=== PATIENT | male | born 1940 | race Caucasian/White ===

== ENCOUNTER 2019-09-24 20:55 | Emergency (ER) | payer MEDICARE, OTHER, SELFPAY ==
[2019-09-24 21:25] VITALS: BP 154/76; PULSE 80; RESP 14; TEMP 36.7; O2SAT 97; BMI 27.9
[2019-09-24 22:16] VITALS: BP 154/59; PULSE 74; RESP 18; O2SAT 100
--- NOTE | 2019-09-24 22:19 | PC.NURSE ---
Patient reports that he had chest tightness and was breathing real faster earlier. reports the patient has a history of diabetes and CHF. Patient denies any symptoms at this time. Patients states that he has also had some feet/leg swelling.
--- NOTE | 2019-09-24 22:32 | ED_ITS ---
Entered by Varsha Moss, acting as scribe for Lashay Worthington MD Sep 24, 2019 20:55 HPI - General Adult General: Chief complaint: General Medical Stated complaint: FEET AND LEGS SWELLING Time Seen by Provider: 09/24/19 22:20 Source: patient and family Mode of arrival: ambulatory Limitations: no limitations History of Present Illness: HPI narrative: 79 y/o male presents to the ED with complaint of bilateral LE swelling. complaint: LE edema Onset (ago): hour(s) Location: lower extremity Severity: moderate Associated symptoms: Deny chest pain, dyspnea, headache(s), nausea, rash or vomiting Review of Systems Const: Denies: fever or chills Eyes: Denies: change in vision ENMT: Denies: throat pain or mouth pain Card: Reports: swelling of feet/ankles; Denies: chest pain Resp: Denies: shortness of breath GI: Denies: abdominal pain, nausea, vomiting or diarrhea Musc: Denies: back pain or joint pain Skin/Breast: Denies: rash Neuro: Denies: headache or behavioral changes Psych: Denies: depression Endo: Denies: excessive urination Lam[place]/Lymph: Denies: easy bruising All/Imm: Denies: hives PFSH ED PFSH: Statuses (acute, chronic, etc) shown below reflect problem list status as previously entered and may not be historically accurate Social History Smoking and tobacco status: former smoker Physical Exam Const: COMMON NORMALS: no apparent distress, oriented x3 and healthy appearing HENMT: COMMON NORMALS: normocephalic and external nose normal HEAD & SCALP: normocephalic NOSE: external nose normal Eye: COMMON NORMALS: PERRL PUPIL: Yes PERRL Neck/C-Spine: COMMON NORMALS: full ROM and no lymphadenopathy Chest: COMMONS NORMALS: inspection of chest normal Resp: COMMON NORMALS: normal respiratory effort, no use of accessory muscles and clear to auscultation bilaterally AUSCULTATION: clear to auscultation bilaterally Cardio: COMMON NORMALS: regular rate and regular rhythm RATE: regular rate RHYTHM: regular rhythm GI: COMMON NORMALS: normal to inspection, nondistended, normoactive bowel sounds, soft to palpation, non-tender and no masses PALPATION: Yes soft Back/Pelvis: THORACIC SPINE/UPPER BACK: Yes normal to inspection Extremity: COMMON NORMALS: full ROM and normal capillary refill RIGHT LOWER EXTREMITY: Yes lower leg LEFT LOWER EXTREMITY: Yes lower leg OTHER: +1 bilateral edema Neuro: COMMON NORMALS: oriented x3 Psych: COMMON NORMALS: mental status grossly normal and cooperative Skin: COMMON NORMALS: no rashes or lesions noted GENERAL SKIN EXAM: no rashes or lesions noted Course Vital Signs: Vital signs: Vital Signs Temperature 98.0 F 09/24/19 21:25 Pulse Rate 71 09/24/19 23:35 Respiratory Rate 17 09/24/19 23:35 Blood Pressure 142/72 09/24/19 23:35 Pulse Oximetry 98 09/24/19 23:35 MDM - General Adult MDM Narrative: Medical decision making narrative: Patient presents here with lower extremity edema likely from CHF. His BNP is unchanged from previous. X- ray shows slight pulmonary edema. Patient is in no respiratory distress here. I had a long discussion with him and family and offered him admission. Patient states that he feels improved and would like to go home and try to diurese at home. I did give him IV Lasix here and he is to continue Lasix at home. He has an appoint with his PCP on and is to follow-up then. I informed if he has any worsening he is to return immediately. He understands and agrees to the plan. Lab Data: Labs: Lab Results 09/24/19 09/24/19 Range/Units 22:50 22:50 WBC 6.6 (4.0-10.0) 10^3/ uL RBC 3.63 L (4.1-5.3) 10^6/u L Hgb 10.5 L (11.7-16.6) g/dL Hct 32.9 L (42.0-52.0) % MCV 90.6 (80-94) fL MCH 28.9 (28.0-34.0) pg MCHC 31.9 (30.0-36.0) g/dL RDW 15.9 H (12.1-15.1) % Plt Count 181 (130-400) 10^3/c mm MPV 10.7 H (7.4-10.4) fL Neut % (Auto) 72.7 % Lymph % (Auto) 14.9 % [place] % (Auto) 8.8 % Eos % (Auto) 2.7 % Baso % (Auto) 0.6 % Neut # (Auto) 4.8 (1.8-7.7) 10^3/u L Lymph # (Auto) 1.0 (0.8-4.8) 10^3/u L [place] # (Auto) 0.6 (0.2-0.9) 10^3/u L Eos # (Auto) 0.2 (0.0-0.8) 10^3/u L Baso # (Auto) 0.0 (0.0-0.1) 10^3/u L Nucleated RBC % (a uto) 0 % Nucleated RBCs # 0.0 /100WBC Sodium 140 (136-145) mmol/L Potassium 3.9 (3.5-5.1) mmol/L Chloride 102 (98-107) mmol/L Carbon Dioxide 24 (22-29) mmol/L Anion Gap 17.9 (5-19) BUN 64 H (8-23) mg/dL Creatinine 2.7 H (0.7-1.2) mg/dL Glucose 73 L (74-106) mg/dL Calcium 9.3 (8.8-10.2) mg/Dl Total Bilirubin 0.4 (0.15-1.2) mg/dL AST 28 (0-40) U/L ALT 44 H (0-41) U/L Alkaline Phosphata se 80 (40-130) IU/L NT-Pro-B Natriuret Pep 95901 H (0-450) pg/mL Total Protein 6.2 L (6.6-8.7) g/dL Albumin 4.3 (3.5-5.2) g/dL Globulin 1.9 (1.3-4.6) g/dL Imaging Data^: CXR: Attestation: I personally reviewed and interpreted this imaging study as follows: My impression: slight pulmonary edema EKG Data^: EKG 1: Attestation: I personally reviewed and interpreted this EKG as follows: EKG interpretation date: 09/24/19 EKG interpretation time: 23:29 Interpretation: nsr hr [address] or t wave abnormalities qrs 162 qtc 480 Discharge Plan Discharge Patient Disposition: Home, Self-Care Clinical Impression: Edema leg CHF exacerbation Qualifiers: Heart failure type: unspecified Qualified Code(s): I50.9 - Heart failure, unspecified Condition: Stable Prescriptions: No Action furosemide 40 mg tablet 40 mg PO BID RF: 0 hydralazine 10 mg tablet 10 mg PO TID RF: 0 isosorbide mononitrate 60 mg tablet extended release 24 hr 60 mg PO DAILY RF: 0 potassium chloride 20 mEq tablet,ER particles/crystals 20 meq PO DAILY RF: 0 lorazepam 2 mg tablet 2 mg PO BEDTIME RF: 0 pantoprazole 40 mg tablet,delayed release (DR/EC) 40 mg PO BID RF: 0 isosorbide dinitrate 20 mg tablet 20 mg PO BID RF: 0 ferrous sulfate 325 mg (65 mg iron) Tablet 325 mg PO DAILY RF: 0 nitroglycerin 0.4 mg tablet, sublingual 0.4 mg sublingual PRN (Reason: Chest Pain) RF: 0 Novolog Flexpen U-100 Insulin 100 unit/mL (3 mL) Insulin Pen SUBCUT RF: 0 Levemir FlexTouch U-100 Insuln 100 unit/mL (3 mL) insulin pen SUBCUT RF: 0 aspirin 81 mg Tablet,Delayed Release (Dr/Ec) 81 mg PO DAILY RF: 0 simvastatin 20 mg tablet 20 mg PO BEDTIME RF: 0 metoprolol tartrate 25 mg Tablet 25 mg PO BID RF: 0 Discharge Orders: Discharge Order (Routine); Ordered 09/24/19 Ordered By: Lashay Worthington Referrals: Fito Baez DO [Primary Care Provider] - Discharge Diet: Advance as tolerated Discharge Activity: Resume usual activity Patient Instructions: Leg Edema (ED) Coding Level of Care Code ED Cash Crop Farmer for Chg Fwd Exam Problem Focused The documentation recorded by the Ajay mejia Ashley, accurately reflects the service I personally performed and the decisions made by Ander gonzalez Korby, MD Sep 24, 2019 20:55
--- NOTE | 2019-09-24 22:43 | XR_ITS ---
WS: [id number] CHEST XRAY TECHNIQUE: Portable chest. CLINICAL INFORMATION: sob COMPARISON: FINDINGS: Heart: Cardiomegaly. Aortic calcification. Prominent left ventricle. Lungs: Improved pleural effusions. Trace pleural fluid. Persistent pulmonary vascular congestion and interstitial edema. Bones: Chronic right rib fracture with callus formation. XR/XR chest 1V portable [id number] IMPRESSION: Cardiomegaly with mild CHF and interstitial edema. Improved pleural effusions w ith trace pleural fluid.
--- NOTE | 2019-09-24 22:44 | ECG_ITS ---
Measurements Intervals [place] Rate: 77 P: 89 [place]: 254 QRS: 22 QRSD: 162 T: 133 QT: 448 QTc: 510 SINUS RHYTHM WITH FIRST DEGREE AV BLOCK WITH OCCASIONAL VENTRICULAR PREMATURE COM COMPLEXES LEFT BUNDLE BRANCH BLOCK [120+ ms QRS DURATION, 80+ ms Q/S IN V1/V2, 85+ ms R IN Compared to ECG 06/07/2019 15:03:06 No significant changes Electronically Signed On 09-25-2019 20:11:19 CAREER TRANSITION SPECIALIST by Doron Yeh M.D. [id number]
[2019-09-24 22:58] LABS: Basophils % 0.6 %; Eosinophils # 0.2 10^3/uL (0.0-0.8); Eosinophils % 2.7 %; Hematocrit 32.9 % (42.0-52.0); Hemoglobin 10.5 g/dL (11.7-16.6); Lymphocytes % 14.9 %; Mean Corpuscular HGB Conc 31.9 g/dL (30.0-36.0); Mean Corpuscular Hemoglobin 28.9 pg (28.0-34.0); Mean Corpuscular Volume 90.6 fL (80-94); Mean Platelet Volume 10.7 fL (7.4-10.4); Monocytes # 0.6 10^3/uL (0.2-0.9); Monocytes % 8.8 %; Neutrophils # 4.8 10^3/uL (1.8-7.7); Neutrophils % 72.7 %; Nucleated Red Blood Cells % 0 %; Platelet Count 181 10^3/cmm (130-400); Red Blood Count 3.63 10^6/uL (4.1-5.3); Red Cell Distribution Width 15.9 % (12.1-15.1); White Blood Count 6.6 10^3/uL (4.0-10.0)
[2019-09-24 23:22] LABS: Alanine Aminotransferase 44 U/L (0-41); Albumin Level 4.3 g/dL (3.5-5.2); Alkaline Phosphatase 80 IU/L (40-130); Anion Gap 17.9 (5-19); Aspartate Amino Transferase 28 U/L (0-40); Blood Urea Nitrogen 64 mg/dL (8-23); Calcium 9.3 mg/Dl (8.8-10.2); Carbon Dioxide 24 mmol/L (22-29); Chloride 102 mmol/L (98-107); Globulin 1.9 g/dL (1.3-4.6); Glucose 73 mg/dL (74-106); Potassium 3.9 mmol/L (3.5-5.1); Sodium 140 mmol/L (136-145); Total Bilirubin 0.4 mg/dL (0.15-1.2); Total Protein 6.2 g/dL (6.6-8.7)
[2019-09-24] MEDS: FUROsemide 10 mg/mL SDV 10mL 80 MG IVP (23:29)
[2019-09-24 23:35] VITALS: BP 142/72; PULSE 71; RESP 17; O2SAT 98
[2019-09-24 23:58] VITALS: BP 142/72; PULSE 79; RESP 16; O2SAT 97
== END 2019-09-25 00:01 | disposition home or self-care (01) ==
PROVIDERS: Emergency Provider Emergency Medicine; Family Provider Family Medicine; PCP Family Medicine
DX: R60.0 Localized edema (principal); I50.9 Heart failure, unspecified; Z79.4 Long term (current) use of insulin; Z87.891 Personal history of nicotine dependence; I70.0 Atherosclerosis of aorta
CPT/HCPCS: 36415; 71045; 80053; 83880; 85025; 93005; 96374; 99281; J1940

== ENCOUNTER → 2019-10-03 12:10 | Outpatient (BNVA) | payer MEDICARE, OTHER, SELFPAY | PROVIDERS: Family Provider Family Medicine; PCP Family Medicine; Visit Provider Family Medicine | DX: E11.9 Type 2 diabetes mellitus without complications (principal); N18.3 Chronic kidney disease, stage 3 (moderate) | CPT/HCPCS: 36415; 80053 ==

== ENCOUNTER → 2019-10-31 09:09 | Outpatient (BNVA) | payer MEDICARE, OTHER, SELFPAY | PROVIDERS: Family Provider Family Medicine; PCP Family Medicine; Visit Provider Family Medicine | DX: D64.9 Anemia, unspecified (principal); E11.9 Type 2 diabetes mellitus without complications; N18.3 Chronic kidney disease, stage 3 (moderate); F41.9 Anxiety disorder, unspecified; I25.10 Atherosclerotic heart disease of native coronary artery without angina pectoris | CPT/HCPCS: 36415; 85025 ==

== ENCOUNTER 2019-11-04 15:02 | Observation (INO) | payer MEDICARE, OTHER, SELFPAY ==
[2019-11-04 15:04] VITALS: BP 150/62; PULSE 79; RESP 16; TEMP 36.3; O2SAT 98; BMI 25.5
--- NOTE | 2019-11-04 15:17 | ED_ITS ---
Entered by Cassie Dowd, acting as scribe for Bruce Landa MD, [facility] [place] Nov 04, 2019 15:02 HPI - Chest Pain General: Chief Complaint: Chest Pain Stated Complaint: cp Time Seen by Provider: 11/04/19 15:16 Source: patient Mode of arrival: ambulatory Limitations: other (hard of hearing) History of Present Illness: HPI narrative: 79 yo Male presents to ED with comp laint of chest pain. Pt states that this started at about 12:00 today. Pt states that his pain is intermittent. Pt's states that the patient took nitro with some relief. Pt states that he has a leaky valve in his heart that causes him to fill up with fluid. Pt's states that the patient has gained 3 pounds since last night. MD complaint: chest pain Pertinent past history: prior IL (x4, stents) Onset (ago): hour(s) Timing of current episode: episodic and now resolved Prior episodes: Yes Onset: during rest Pain location: substernal Pain radiation: none Relieving factors: nitroglycerin Exacerbating factors: nothing Associated symptoms: Reports dyspnea; Deny abdominal pain, fever(s), nausea, palpitations or vomiting Treatment prior to arrival: nitroglycerin Review of Systems General: Reports: 10 or more systems reviewed and unremarkable except in HPI and below Const: Denies: fever, chills or body aches Eyes: Denies: change in vision or blurry vision ENMT: Denies: throat pain, enlarged tonsils, painful swallowing, hoarseness, mouth pain or swelling of lips/tongue Card: Reports: chest pain, edema and swelling of feet/ankles; Denies: palpitations or irregular heart rhythm Resp: Reports: shortness of breath; Denies: productive cough or non-productive cough GI: Denies: abdominal pain, nausea or vomiting : Denies: flank pain, painful urination, urinary frequency, urinary urgency or urinary hesitancy Musc: Denies: neck pain, back pain or extremity swelling Skin/Breast: Denies: rash, itching or redness Neuro: Denies: headache, numbness in extremities or weakness in extremities Endo: Denies: excessive urination, excessive thirst or tired all the time [facility] ED PFSH: Medical History (Updated 11/04/19 @ 22:10 by Bruce Landa MD, [facility] [place]) Carotid artery disease Chronic kidney disease (CKD) stage G3b/A2, moderately decreased glomerular filtration rate (GFR) between 30-44 mL/min/1.73 square meter and albuminuria creatinine ratio between 30-299 mg/g Congestive heart failure Severe mitral regurgitation Type 2 diabetes mellitus Surgical History (Updated 11/04/19 @ 18:08 by Prince Holley MD) History of coronary artery stent placement Family History (Updated 11/04/19 @ 18:08 by Prince Holley MD) Other CAD (coronary artery disease) Social History (Updated 11/04/19 @ 18:09 by Prince Holley MD) Smoking and tobacco status: former smoker Quit status (tobacco): has quit using tobacco Alcohol intake: never Household members: spouse Housing: House Physical Exam Const: COMMON NORMALS: no apparent distress, average body habitus, oriented x3, no limitations, healthy appearing, alert and well nourished HENMT: COMMON NORMALS: normocephalic, head/scalp atraumatic and moist oral mucous membranes HEAD & SCALP: normocephalic and atraumatic Eye: COMMON NORMALS: PERRL, EOMs intact bilaterally, conjunctivae normal and no scleral icterus CONJUNCTIVA: Yes conjunctivae normal PUPIL: Yes PERRL Neck/C-Spine: COMMON NORMALS: full ROM, supple, no meningeal signs, no JVD and no carotid bruits Chest: COMMONS NORMALS: inspection of chest normal and palpation of chest normal Resp: COMMON NORMALS: normal respiratory effort, no retractions, no use of accessory muscles and percussion normal; negative for clear to auscultation bilaterally AUSCULTATION: not clear to auscultation bilaterally and crackles PERCUSSION: percussion normal Cardio: COMMON NORMALS: no JVD, regular rate, regular rhythm, S1 normal heart sound, S2 normal heart sound, no gallops, no clicks, no murmurs, no rub and peripheral pulses 2+ throughout RATE: regular rate RHYTHM: regular rhythm HEART SOUNDS: S1 normal, S2 normal and murmur PERIPHERAL PULSES: pulses 2+ throughout GI: COMMON NORMALS: normal to inspection, nondistended, normoactive bowel sounds, soft to palpation, non-tender, no hepatosplenomegaly, no masses and no bruits PALPATION: Yes soft and Yes no hepatosplenomegaly : COMMON NORMALS: Yes no CVA tenderness BLADDER/KIDNEY EXAM: Yes no CVA tenderness Back/Pelvis: COMMON NORMALS: no CVA tenderness Extremity: COMMON NORMALS: normal to inspection, full ROM, normal capillary refill, no calf tenderness and no pedal edema GENERAL: Yes normal exam except as noted and Yes edema (2+) Neuro: COMMON NORMALS: oriented x3 SENSORIUM/ORIENTATION: Yes alert MENINGEAL SIGNS: Yes no meningeal signs Skin: COMMON NORMALS: no rashes or lesions noted, no wounds, skin turgor normal, no jaundice, no petechiae and no mottling GENERAL SKIN EXAM: no rashes or lesions noted and turgor normal Course Consultations: Consultation #1: Dr. Lara, hospitalist. He kindly accepted the patient to his service. Time: 18:15 Vital Signs: Vital signs: Vital Signs Temperature 97.9 F 11/04/19 21:39 Pulse Rate 110 H 11/04/19 21:39 Respiratory Rate 24 H 11/04/19 21:39 Blood Pressure 150/95 11/04/19 21:39 Pulse Oximetry 98 11/04/19 21:39 MDM - Chest Pain MDM Narrative: Medical decision making narrative: 77-year-old gentleman who presents to the emergency department with chest pain and shortness of breath. Evaluation in the emergency department is consistent with CHF exacerbation. He also has chronic kidney disease and an elevated troponin. He is admitted to the cardiac stepdown unit for further evaluation and management Medical Records: Attestation: I reviewed the patient's medical records. Lab Data: Attestation: I reviewed the patient's lab results. Lab results narrative: Elevated troponin, elevated but stable creatinine, elevated BUN, elevated proBNP. Labs: Lab Results 11/04/19 11/04/19 11/04/19 Range/Units 15:32 15:32 15:32 WBC 6.0 (4.0-10.0) 10^3/ uL RBC 3.86 L (4.1-5.3) 10^6/u L Hgb 11.1 L (11.7-16.6) g/dL Hct 35.2 L (42.0-52.0) % MCV 91.2 (80-94) fL MCH 28.8 (28.0-34.0) pg MCHC 31.5 (30.0-36.0) g/dL RDW 13.9 (12.1-15.1) % Plt Count 170 (130-400) 10^3/c mm MPV 11.3 H (7.4-10.4) fL Neut % (Auto) 61.5 % Lymph % (Auto) 22.3 % [place] % (Auto) 9.8 % Eos % (Auto) 5.5 % Baso % (Auto) 0.7 % Neut # (Auto) 3.7 (1.8-7.7) 10^3/u L Lymph # (Auto) 1.3 (0.8-4.8) 10^3/u L [place] # (Auto) 0.6 (0.2-0.9) 10^3/u L Eos # (Auto) 0.3 (0.0-0.8) 10^3/u L Baso # (Auto) 0.0 (0.0-0.1) 10^3/u L Nucleated RBC % (a uto) 0 % Nucleated RBCs # 0.0 /100WBC D-Dimer 0.61 H (0-0.59) ug/mIFE U Sodium 140 (136-145) mmol/L Potassium 4.8 (3.5-5.1) mmol/L Chloride 101 (98-107) mmol/L Carbon Dioxide 25 (22-29) mmol/L Anion Gap 18.8 (5-19) BUN 78 H (8-23) mg/dL Creatinine 3.0 H (0.7-1.2) mg/dL Glucose 91 (65-115) mg/dL Calcium 9.1 (8.5-10.5) mg/dL Total Bilirubin 0.2 (0.15-1.2) mg/dL AST 18 (0-40) U/L ALT 13 (0-41) U/L Alkaline Phosphata se 83 (40-130) IU/L Troponin T Baselin e (0-15) ng/mL Troponin T 120 Min koi (0-15) ng/mL Delta Troponin T (0-10) ABS# NT-Pro-B Natriuret Pep (0-450) pg/mL Total Protein 6.7 (6.6-8.7) g/dL Albumin 4.5 (3.5-5.2) g/dL Globulin 2.2 (1.3-4.6) g/dL TSH (0.27-4.20) uIU/ mL Urine Color (Yellow) Urine Appearance (CLEAR) Urine pH (5-7) Ur Specific Gravit y (1.005-1.030) Urine Protein (Negative) Urine Glucose (UA) (Normal) Urine Ketones (Negative) Urine Blood (Negative) Urine Nitrate (Negative) Urine Bilirubin (NEGATIVE) Urine Urobilinogen (Negative) mg/dL Ur Leukocyte Jovita ase (Negative) 11/04/19 11/04/19 11/04/19 Range/Units 15:32 17:07 17:31 WBC (4.0-10.0) 10^3/ uL RBC (4.1-5.3) 10^6/u L Hgb (11.7-16.6) g/dL Hct (42.0-52.0) % MCV (80-94) fL MCH (28.0-34.0) pg MCHC (30.0-36.0) g/dL RDW (12.1-15.1) % Plt Count (130-400) 10^3/c mm MPV (7.4-10.4) fL Neut % (Auto) % Lymph % (Auto) % [place] % (Auto) % Eos % (Auto) % Baso % (Auto) % Neut # (Auto) (1.8-7.7) 10^3/u L Lymph # (Auto) (0.8-4.8) 10^3/u L [place] # (Auto) (0.2-0.9) 10^3/u L Eos # (Auto) (0.0-0.8) 10^3/u L Baso # (Auto) (0.0-0.1) 10^3/u L Nucleated RBC % (a uto) % Nucleated RBCs # /100WBC D-Dimer (0-0.59) ug/mIFE U Sodium (136-145) mmol/L Potassium (3.5-5.1) mmol/L Chloride (98-107) mmol/L Carbon Dioxide (22-29) mmol/L Anion Gap (5-19) BUN (8-23) mg/dL Creatinine (0.7-1.2) mg/dL Glucose (65-115) mg/dL Calcium (8.5-10.5) mg/dL Total Bilirubin (0.15-1.2) mg/dL AST (0-40) U/L ALT (0-41) U/L Alkaline Phosphata se (40-130) IU/L Troponin T Baselin e 81 H (0-15) ng/mL Troponin T 120 Min koi 73.64 H (0-15) ng/mL Delta Troponin T -7.36 L (0-10) ABS# NT-Pro-B Natriuret Pep (0-450) pg/mL Total Protein (6.6-8.7) g/dL Albumin (3.5-5.2) g/dL Globulin (1.3-4.6) g/dL TSH (0.27-4.20) uIU/ mL Urine Color Straw (Yellow) Urine Appearance Clear (CLEAR) Urine pH 5 (5-7) Ur Specific Gravit y 1.005 (1.005-1.030) Urine Protein Neg (Negative) Urine Glucose (UA) Norm (Normal) Urine Ketones Negative (Negative) Urine Blood Neg (Negative) Urine Nitrate Negative (Negative) Urine Bilirubin Neg (NEGATIVE) Urine Urobilinogen Norm (Negative) mg/dL Ur Leukocyte Jovita ase Negative (Negative) 11/04/19 11/04/19 Range/Units 17:31 17:31 WBC (4.0-10.0) 10^3/ uL RBC (4.1-5.3) 10^6/u L Hgb (11.7-16.6) g/dL Hct (42.0-52.0) % MCV (80-94) fL MCH (28.0-34.0) pg MCHC (30.0-36.0) g/dL RDW (12.1-15.1) % Plt Count (130-400) 10^3/c mm MPV (7.4-10.4) fL Neut % (Auto) % Lymph % (Auto) % [place] % (Auto) % Eos % (Auto) % Baso % (Auto) % Neut # (Auto) (1.8-7.7) 10^3/u L Lymph # (Auto) (0.8-4.8) 10^3/u L [place] # (Auto) (0.2-0.9) 10^3/u L Eos # (Auto) (0.0-0.8) 10^3/u L Baso # (Auto) (0.0-0.1) 10^3/u L Nucleated RBC % (a uto) % Nucleated RBCs # /100WBC D-Dimer (0-0.59) ug/mIFE U Sodium (136-145) mmol/L Potassium (3.5-5.1) mmol/L Chloride (98-107) mmol/L Carbon Dioxide (22-29) mmol/L Anion Gap (5-19) BUN (8-23) mg/dL Creatinine (0.7-1.2) mg/dL Glucose (65-115) mg/dL Calcium (8.5-10.5) mg/dL Total Bilirubin (0.15-1.2) mg/dL AST (0-40) U/L ALT (0-41) U/L Alkaline Phosphata se (40-130) IU/L Troponin T Baselin e (0-15) ng/mL Troponin T 120 Min koi (0-15) ng/mL Delta Troponin T (0-10) ABS# NT-Pro-B Natriuret Pep 52734 H (0-450) pg/mL Total Protein (6.6-8.7) g/dL Albumin (3.5-5.2) g/dL Globulin (1.3-4.6) g/dL TSH 3.70 (0.27-4.20) uIU/ mL Urine Color (Yellow) Urine Appearance (CLEAR) Urine pH (5-7) Ur Specific Gravit y (1.005-1.030) Urine Protein (Negative) Urine Glucose (UA) (Normal) Urine Ketones (Negative) Urine Blood (Negative) Urine Nitrate (Negative) Urine Bilirubin (NEGATIVE) Urine Urobilinogen (Negative) mg/dL Ur Leukocyte Jovita ase (Negative) Imaging Data^: CXR: Radiologist's impression: [address] [place] [address] XRay Report Signed Patient: Paulino Jonesleilani #: [id number] : 1Acct#:[id number] Age/Sex: 79 / MADM Date: 11/04/19 Loc: ERRoom/Bed: Attending Dr: Ordering Provider/Ordering MD: Bruce Landa MD, [facility] [place] Date of Service: 11/04/19 Procedure(s): XR chest 1V portable [id number] Accession Number(s): [id number] Report Number: [id number] PROCEDURE INFORMATION: Exam: XR Chest, 1 View Exam date and time: 11/04/2019 4:39 PM Age: 79 years old Clinical indication: Left-sided chest pain TECHNIQUE: Imaging protocol: XR of the chest Views: 1 view. COMPARISON: CR XR chest 1V portable [id number] 09/24/2019 10:51 PM FINDINGS: Lungs: There is unchanged vascular congestion with cephalization of flow, interstitial edema and ground-glass opacities compatible with CHF. Basilar ground-glass opacities are unchanged. No new airspace consolidation or infiltrate. Pleural space: Unremarkable. No pleural effusion. No pneumothorax. Heart/Mediastinum: The heart is enlarged. Bones/joints: No acute abnormality. XR/XR chest 1V portable [id number] IMPRESSION: There is unchanged vascular congestion with cephalization of flow, interstitial edema and ground-glass opacities compatible with CHF. Dictated By:Laura Coleman Signed By:Tien Coleman Date/Time:11/04/19 1730 DD/ 1729 EKG Data^: EKG 1: Attestation: I personally reviewed and interpreted this EKG as follows: EKG interpretation date: 11/04/19 EKG interpretation time: 15:03 Prior EKG tracings: not available for review Computer generated interpretation: [address] [address] Electrocardiograph Report Signed Patient: Paulino Jones #: [id number] : 1940cct#:[id number] Age/Sex: 79 / MADM Date: 09/24/19 Loc: ERRoom/Bed: Attending Dr: Ordering Provider/Ordering MD: Lashay Worthington MD Date of Service: 09/24/19 Procedure(s): ECG 12 lead EKG Accession Number(s): [id number] Report Number: [id number] Measurements Intervals [place] Rate: 77 P: 89 [place]: 254 QRS: 22 QRSD: 162 T: 133 QT: 448 QTc: 510 SINUS RHYTHM WITH FIRST DEGREE AV BLOCK WITH OCCASIONAL VENTRICULAR PREMATURE COM COMPLEXES LEFT BUNDLE BRANCH BLOCK [120+ ms QRS DURATION, 80+ ms Q/S IN V1/V2, 85+ ms R IN Compared to ECG 06/07/2019 15:03:06 No significant changes Electronically Signed On 09-25-2019 20:11:19 ELECTRIC RAZOR MECHANIC by Doron Yeh M.D. [email or web address] EKG 2: Attestation: I personally reviewed and interpreted this EKG as follows: EKG interpretation date: 11/04/19 EKG interpretation time: 18:51 Prior EKG tracings: available for review Interpretation: Unchanged from earlier today Discharge Plan Discharge Patient Disposition: Admitted As Inpatient Admit Provider: Prince Holley Clinical Impression: Chronic kidney disease (CKD) stage G3b/A2, moderately decreased glomerular filtration rate (GFR) between 30-44 mL/min/1.73 square meter and albuminuria creatinine ratio between 30-299 mg/g, Type 2 diabetes mellitus Congestive heart failure Qualifiers: Heart failure type: unspecified Heart failure chronicity: acute on chronic Qualified Code(s): I50.9 - Heart failure, unspecified Condition: Stable Interventions: ED Discharge Assessment Last Done: 11/04/19 21:28 Discharge Date/Time: 11/04/19 21:34 Coding Level of Care Code ED Wholesaler for Chg Fwd Exam Comprehensive The documentation recorded by the Noemí mejia Carmen, accurately reflects the service I personally performed and the decisions made by Cordell gonzalez Adegoke I, MD, [facility] [place] Nov 04, 2019 15:02
--- NOTE | 2019-11-04 15:39 | PC.NURSE ---
Patient states chest pain started in the left lower chest about 12pm during rest. Patient states that between this time and 1400 he took two nitros and this helped his pain temporarily. The pain returned once on the drive over then again during his triage. Patient states pain is not present at this time. states that patient has a leaky valve and has gained 2lb since this morning.
--- NOTE | 2019-11-04 15:57 | XRR_ITS ---
PROCEDURE INFORMATION: Exam: XR Chest, 1 View Exam date and time: 11/04/2019 4:39 PM Age: 79 years old Clinical indication: Left-sided chest pain TECHNIQUE: Imaging protocol: XR of the chest Views: 1 view. COMPARISON: CR XR chest 1V portable [id number] 09/24/2019 10:51 PM FINDINGS: Lungs: There is unchanged vascular congestion with cephalization of flow, interstitial edema and ground-glass opacities compatible with CHF. Basilar ground-glass opacities are unchanged. No new airspace consolidation or infiltrate. Pleural space: Unremarkable. No pleural effusion. No pneumothorax. Heart/Mediastinum: The heart is enlarged. Bones/joints: No acute abnormality. XR/XR chest 1V portable [id number] IMPRESSION: There is unchanged vascular congestion with cephalization of flow, interstitial edema and ground-glass opacities compatible with CHF.
[2019-11-04 16:14] LABS: Basophils % 0.7 %; Eosinophils # 0.3 10^3/uL (0.0-0.8); Eosinophils % 5.5 %; Hematocrit 35.2 % (42.0-52.0); Hemoglobin 11.1 g/dL (11.7-16.6); Lymphocytes # 1.3 10^3/uL (0.8-4.8); Lymphocytes % 22.3 %; Mean Corpuscular HGB Conc 31.5 g/dL (30.0-36.0); Mean Corpuscular Hemoglobin 28.8 pg (28.0-34.0); Mean Corpuscular Volume 91.2 fL (80-94); Mean Platelet Volume 11.3 fL (7.4-10.4); Monocytes # 0.6 10^3/uL (0.2-0.9); Monocytes % 9.8 %; Neutrophils # 3.7 10^3/uL (1.8-7.7); Neutrophils % 61.5 %; Nucleated Red Blood Cells % 0 %; Platelet Count 170 10^3/cmm (130-400); Red Blood Count 3.86 10^6/uL (4.1-5.3); Red Cell Distribution Width 13.9 % (12.1-15.1)
[2019-11-04 16:28] LABS: Alanine Aminotransferase 13 U/L (0-41); Albumin Level 4.5 g/dL (3.5-5.2); Alkaline Phosphatase 83 IU/L (40-130); Anion Gap 18.8 (5-19); Aspartate Amino Transferase 18 U/L (0-40); Blood Urea Nitrogen 78 mg/dL (8-23); Calcium 9.1 mg/dL (8.5-10.5); Carbon Dioxide 25 mmol/L (22-29); Chloride 101 mmol/L (98-107); D Dimer 0.61 ug/mIFEU (0-0.59); Globulin 2.2 g/dL (1.3-4.6); Glucose 91 mg/dL (65-115); Potassium 4.8 mmol/L (3.5-5.1); Sodium 140 mmol/L (136-145); Total Bilirubin 0.2 mg/dL (0.15-1.2); Total Protein 6.7 g/dL (6.6-8.7)
[2019-11-04 16:32] LABS: Troponin(5th) Baseline 81 ng/mL (0-15)
[2019-11-04 17:30] LABS: Add Urine Microscopic? NO
[2019-11-04 17:37] LABS: Urine Appearance Clear (CLEAR); Urine Color Straw (Yellow); pH Urine 5 (5-7)
[2019-11-04 17:38] LABS: Bilirubin Urine Neg (NEGATIVE); Blood Urine Neg (Negative); Glucose Urine UA Norm (Normal); Ketones Urine Negative (Negative); Leukocyte Esterase Urine Negative (Negative); Nitrate Urine Negative (Negative); Protein Urine Neg (Negative); Specific Gravity, Urine 1.005 (1.005-1.030); Urobilinogen Urine Norm (Negative)
[2019-11-04 17:52] LABS: Troponin 5 2HR 73.64 ng/mL (0-15)
[2019-11-04 17:57] LABS: Troponin 5 2HR Delta -7.36 ABS# (0-10)
--- NOTE | 2019-11-04 17:57 | ECG_ITS ---
Measurements Intervals [place] Rate: 86 P: 91 CT: 239 QRS: 12 QRSD: 161 T: 132 QT: 421 QTc: 505 SINUS RHYTHM WITH FIRST DEGREE AV BLOCK LEFT BUNDLE BRANCH BLOCK [120+ ms QRS DURATION, 80+ ms Q/S IN V1/V2, 85+ ms R IN / I/aVL/V5/V6] Compared to ECG 09/24/2019 23:29:53 No significant changes Electronically Signed On 11-05-2019 19:47:24 TELECASTING ENGINEER by Ovidio Dotson M.D. [id number]
--- NOTE | 2019-11-04 18:05 | P.HP_ITS ---
Providers/Chief Complaint Primary Care Provider: Fito Baez DO Chief Complaint: cp History of Present Illness Paulino Jones is a 79 year old male with past medical history of type 2 diabetes mellitus, COPD, combined congestive heart failure, severe mitral regurgitation, CAD, CKD with baseline creatinine which seems to be between 2.5-3 with multiple admissions because of congestive heart failure with last admission in May 2019. He presented to hospital today with CP which was left sided non radiating, not reffering not a/w N/V, palpitations, headache. As per patient has these CP on and off once every week and gets worse when he puts up fluid on his body. He denies any more PND and orthopnea and SOB on exertion than baseline but he has been asked by Dr. Vaughn to come to ER every time he builds up more than 3 lbs. Today when he woke up his weight was 5 lbs more than baseline so presented to ER. He denies any N/V, fever, flu like symptoms, fever, cough, diarrhea, dysuria, increased salt intake or increased water intake or changes in his medication. Review of Systems Const: Denies: fever, chills, body aches, change in appetite, malaise, night sweats, diaphoresis, change in sleep pattern, daytime sleepiness or snoring Eyes: Denies: change in vision, blurry vision, photophobia, eye discomfort or eye discharge ENMT: Denies: throat pain, enlarged tonsils, hoarseness, mouth pain, oral sores/lesions, dry mouth, tinnitus, nasal congestion or post nasal drip Card: Denies: chest pain, palpitations, irregular heart rhythm, edema, swelling of feet/ankles, lightheadedness, syncope, pre-syncope, shortness of breath on exertion, shortness of breath when lying down, leg pain with exertion or bluish discoloration of hands/feet Resp: Denies: shortness of breath, productive cough, non-productive cough, wheezing, stridor, pain on inspiration, change in phlegm color, coughing up blood or chest congestion GI: Denies: abdominal pain, nausea, vomiting, vomiting blood, coffee grounds in vomit, difficulty swallowing, heartburn/indigestion, diarrhea, constipation, bloating, cramping, change in bowel habits, painful bowel movements, blood in stool or black tarry stool : Denies: flank pain, difficulty urinating, painful urination, urinary frequency, urinary urgency, urinary hesitancy, urinary dribbling, difficulty starting urination, change in urine stream, nighttime urination or blood in urine Musc: Denies: neck pain, back pain, extremity pain, joint pain, joint swelling, redness, joint stiffness or limited range of motion Neuro: Denies: headache, numbness in extremities, weakness in extremities, changes in sensation, lack of coordination, difficulty walking, frequent falls, dizziness, vertigo, confusion, slurred speech, difficulty communicating thoughts or seizure-like activity Psych: Denies: anxiety, depression, mood swings, panic attacks, hopelessness or irritability Endo: Denies: excessive urination, excessive thirst, tired all the time, cold intolerance, excessive sweating, flushing or heat intolerance Lamont/Lymph: Denies: easy bruising or easy bleeding All/Imm: Denies: tongue swelling, facial swelling or acute wheezing Medications/Allergies Home Medications Medication Instructions Recorded Confirmed Last Taken Type insulin aspart U-100 [Novolog See Rx Instructions .ROUTE .COMPLEX 11/04/19 11/04/19 11/04/19 History Flexpen U-100 Insulin] insulin detemir U-100 [Levemir 70 unit SUBCUT DAILY 11/04/19 11/04/19 11/04/19 History FlexTouch U-100 Insuln] Allergies Allergy/AdvReac Type Severity Reaction Status Date / Time nortriptyline Allergy Severe ALGY-Anaphy Verified 10/31/19 09:09 laxis sulfamethoxazole Allergy Unknown Unknown Verified 10/31/19 09:09 [From Bactrim] trimethoprim [From Bactrim] Allergy Unknown Unknown Verified 10/31/19 09:09 atorvastatin [From Lipitor] Allergy ADV-Weaknes Verified 10/31/19 09:09 s ceftriaxone [From Rocephin] Allergy Unknown Verified 10/31/19 09:09 PFSH Acute PFSH: Medical History (Updated 11/04/19 @ 18:08 by Prince Holley MD) Carotid artery disease Chronic kidney disease (CKD) stage G3b/A2, moderately decreased glomerular filtration rate (GFR) between 30-44 mL/min/1.73 square meter and albuminuria creatinine ratio between 30-299 mg/g Congestive heart failure Severe mitral regurgitation Type 2 diabetes mellitus Surgical History (Updated 11/04/19 @ 18:08 by Prince Holley MD) History of coronary artery stent placement Family History (Updated 11/04/19 @ 18:08 by Prince Holley MD) Other CAD (coronary artery disease) Social History (Updated 11/04/19 @ 18:09 by Prince Holley MD) Smoking and tobacco status: former smoker Quit status (tobacco): has quit using tobacco Alcohol intake: never Household members: spouse Housing: House Vitals/I&O/Wt Last Vital Signs Temp 97.4 F L 11/04/19 15:04 Pulse 79 11/04/19 15:04 Resp 16 11/04/19 15:04 BP 150/62 11/04/19 15:04 Pulse Ox 98 11/04/19 15:04 Weight last 48 hrs Weight 73.936 kg Physical Exam Narrative: EXAM NARRATIVE: General: No acute distress, AO x3 HEENT: PERRLA, pupils bilaterally equal and reactive Chest: Normal vesicular breath sounds, fine crackles present in both the bases, equal good air entry bilaterally CVS: S1-S2 regular, pansystolic murmur in the apex 3/6, JVD elevated, S3 gallop, no rubs Abdomen: Soft, nontender, no organomegaly, bowel sounds present Neuro: No focal deficits, no facial deformity, AO x3, power 5/5 in all limbs Extremities: 1+ pitting edema in both lower limbs Data : 11/04/19 15:32 11/04/19 15:32 A&P Assessment and plan (1) CAD (coronary artery disease): Status: Acute Code(s): I25.10 - Atherosclerotic heart disease of [place] coronary artery without angina pectoris (2) Chronic kidney disease (CKD) stage G3b/A2, moderately decreased glomerular filtration rate (GFR) between 30-44 mL/min/1.73 square meter and albuminuria creatinine ratio between 30-299 mg/g: Status: Acute Code(s): N18.3 - Chronic kidney disease, stage 3 (moderate) (3) Type 2 diabetes mellitus: Status: Acute Qualifiers: Diabetes mellitus complication status: without complication Diabetes mellitus long wall mining machine helper insulin use: without halfway use Qualified Code(s): E11.9 - Type 2 diabetes mellitus without complications Code(s): E11.9 - Type 2 diabetes mellitus without complications (4) Congestive heart failure: Status: Acute Code(s): I50.9 - Heart failure, unspecified (5) Severe mitral regurgitation: Status: Acute Code(s): I34.0 - Nonrheumatic mitral (valve) insufficiency Additional A&P Information Admit to [facility] Congestive heart failure: Chest x-ray concerning for mild congestive heart failure. No proBNP done. Will get proBNP stat. Last proBNP in September more than 27,000. Last echocardiogram 14 April 2019 shows EF of 45 to 50% with global hypokinesis with grade 2 diastolic dysfunction RVSP of 67 mmHg, moderate to severe mitral regurgitation, mild aortic stenosis, mild aortic regurgitation. Patient has been given 80 mg IV Lasix in the ER. For now we will start patient on 60 mg IV Lasix twice daily from tomorrow morning. Fluid restriction to 15,00 cc per day Daily weights. Strict intake and output charting. Oxygen supplementation keeping saturation over 92%. CP: EKG at baseline. Troponins at baseline with negative delta. Most likley from CHF GI bleed in April: no evidence of acute change, hemoglobin stable Chronic kidney disease: Creatinine appears to be a baseline, will continue to monitor closely Elevated troponin: Secondary to acute CHF exacerbation. Appears to be chronic Insulin-dependent diabetes mellitus type II: continue on home insulin COPD, oxygen use on an as-needed basis: currently on RA, RTAT, O2 per protocol Diastolic and systolic congestive heart failure: as above Severe mitral regurgitation: followed by Dr. Vaughn Coronary artery disease: Continue aspirin, metoprolol, statin, Imdur DVT ppx: SCDs, heparin 5000 every 12 Diet: 2gram sodium restriction, 1500mL fluid restriction Code status: Full code Attestations Medical Necessity Statement*: Less than 2 midnights under observation for CHF Time Spent in Patient Care: Greater than 35 minutes (>than 50% of time spent in counselling and/or direct pt care on unit) . Coding Level of Care Code Acute Railroad Car Truck Builder for Chg Fwd Diagnoses CAD (coronary artery disease) I25.10 Chronic kidney disease (CKD) stage G3b/A2, moderately decreased glomerular filtration rate (GFR) between 30-44 mL/min/1.73 square meter and albuminuria creatinine ratio between 30-299 mg/g N18.3 Type 2 diabetes mellitus E11.9 Diabetes mellitus complication status: without complication Diabetes mellitus halfway insulin use: without halfway use Congestive heart failure I50.9 Severe mitral regurgitation I34.0
[2019-11-04] MEDS: FUROsemide 10 mg/mL SDV 10mL 80 MG IVP (18:17)
[2019-11-04 18:51] LABS: NT Pro B Type Natriuretic Pept 13286 pg/mL (0-450)
[2019-11-04 20:53] LABS: Glucose Point of Care 214 mg/dL (70-110)
[2019-11-04 21:04] VITALS: BP 127/71; PULSE 92; RESP 15; O2SAT 94
[2019-11-04 21:28] VITALS: BP 127/71; PULSE 86; RESP 12; O2SAT 98
[2019-11-04 21:39] VITALS: BP 150/95; PULSE 110; RESP 24; TEMP 36.6; O2SAT 98
[2019-11-04] MEDS: hyDRALAzine 10 mg Tablet PO (21:47)
[2019-11-04 21:48] LABS: Troponin 5 6HR 68.98 ng/mL (0-15)
--- NOTE | 2019-11-04 21:57 | ECG_ITS ---
Measurements Intervals [place] Rate: 97 P: 40 CT: 228 QRS: -12 QRSD: 155 T: 130 QT: 386 QTc: 492 SINUS RHYTHM WITH FIRST DEGREE AV BLOCK POSSIBLE LEFT ATRIAL ENLARGEMENT [-0.1mV P WAVE IN V1/V2] LEFT BUNDLE BRANCH BLOCK [120+ ms QRS DURATION, 80+ ms Q/S IN V1/V2, 85+ ms R IN I/aVL/V5/V6] Compared to ECG 09/24/2019 23:29:53 No significant changes Electronically Signed On 11-05-2019 19:47:47 LUMBER MOVER by Ovidio Dotson M.D. [id number] rizo
[2019-11-04 22:11] LABS: Troponin 5 6HR Delta -12.02 ng/L (0-12)
--- NOTE | 2019-11-04 22:34 | PC.NURSE ---
Patient arrived to the floor from the ED. Patient is alert and oriented. Patient is not complaining of any pain. Patient and state that patient is not allergic to Simvistatin, but is allergic to Atorvastatin. They also state that patient cannot take any blood thinners expect for aspirin, stating when he had to go to [place] they stopped all of his blood thinners because of a stomach bleed. They also state that patient cannot take large doses of Lantus/Levemir at night because it drops his blood sugar too much at night at home. They state that he has to take it in the morning. Dr. Acevedo notified. Patient has been oriented to her room and has call light within reach.
--- NOTE | 2019-11-04 23:05 | PC.NURSE ---
Patient hit is call light complaining of chest pain. Nurse was walking toward patient's room with SL nitro. By the time the nurse got to patient's room, patient states that the pain is gone. Nurse educated patient to let us know if it comes back. Will continue to monitor. VSS.
[2019-11-05] VITALS (7 sets, daily range): BP systolic 119–145; BP diastolic 55–78; PULSE 69–96; RESP 14–18; TEMP 35.9–37.1; O2SAT 95–97
[2019-11-05 04:10] LABS: Basophils % 0.5 %; Eosinophils # 0.3 10^3/uL (0.0-0.8); Eosinophils % 4.4 %; Hematocrit 37.6 % (42.0-52.0); Hemoglobin 12.1 g/dL (11.7-16.6); Lymphocytes # 0.9 10^3/uL (0.8-4.8); Lymphocytes % 15.7 %; Mean Corpuscular HGB Conc 32.2 g/dL (30.0-36.0); Mean Corpuscular Hemoglobin 29.7 pg (28.0-34.0); Mean Corpuscular Volume 92.4 fL (80-94); Mean Platelet Volume 11.7 fL (7.4-10.4); Monocytes # 0.5 10^3/uL (0.2-0.9); Monocytes % 8.9 %; Neutrophils % 70.3 %; Nucleated Red Blood Cells % 0 %; Platelet Count 175 10^3/cmm (130-400); Red Blood Count 4.07 10^6/uL (4.1-5.3); Red Cell Distribution Width 13.6 % (12.1-15.1); White Blood Count 5.7 10^3/uL (4.0-10.0)
[2019-11-05 04:27] LABS: Chol HDL Ratio 3.66 mg/dL (1.0-5.00); Cholesterol 183 mg/dL (0-200); HDL Cholesterol 50 mg/dL (60-100); LDL Cholesterol Calculated 107 mg/dL (50-129); LDL HDL Ratio 2.14 RATIO (0.00-3.22); Triglycerides 131 mg/dL (0-150)
[2019-11-05 04:28] LABS: Alanine Aminotransferase 13 U/L (0-41); Albumin Level 3.9 g/dL (3.5-5.2); Alkaline Phosphatase 77 IU/L (40-130); Anion Gap 21.2 (5-19); Aspartate Amino Transferase 17 U/L (0-40); Blood Urea Nitrogen 69 mg/dL (8-23); Calcium 9.9 mg/dL (8.5-10.5); Carbon Dioxide 24 mmol/L (22-29); Chloride 97 mmol/L (98-107); Creatinine Clr Calc Pharmacy 21.8378; Globulin 3.5 g/dL (1.3-4.6); Glucose 218 mg/dL (65-115); Magnesium 2.5 mg/dL (1.7-2.3); Potassium 4.2 mmol/L (3.5-5.1); Sodium 138 mmol/L (136-145); Total Bilirubin 0.3 mg/dL (0.15-1.2); Total Protein 7.4 g/dL (6.6-8.7)
[2019-11-05 04:53] LABS: Estmated Average Glucose 194; Hemoglobin A1C 8.4 % (4.0-6.0)
[2019-11-05 06:44] LABS: Glucose Point of Care 237 mg/dL (70-110)
[2019-11-05] MEDS: ferrous sulfate EC 325 mg Tablet PO (08:47)
[2019-11-05] MEDS: metoprolol tartrate 25 mg Tablet PO (08:47)
[2019-11-05] MEDS: isosorbide mononitrate ER 60 mg Tablet PO (08:47)
[2019-11-05] MEDS: pantoprazole DR 40 mg Tablet PO (08:47)
[2019-11-05] MEDS: aspirin 81 mg EC Tablet PO (08:47)
[2019-11-05] MEDS: isosorbide dinitrate 20 mg Tablet PO (08:47)
[2019-11-05] MEDS: hyDRALAzine 10 mg Tablet PO (08:47)
[2019-11-05] MEDS: insulin glargine 100 units/1 mL 60 UNIT SUBCUT (08:48)
--- NOTE | 2019-11-05 09:20 | PC.NURSE ---
EKG obtained at this time due to verbal orders with Dr mcnair at bedside no orders place in computer at this time
--- NOTE | 2019-11-05 09:56 | PC.CHAP ---
Pastoral Care Encounter/Spiritual Assessment Type of Contact [] Declined inside contractor sales visit [] Patient/Family/Request visit [] Outpatient visit [] Follow-up visit [] Physician referral [] Code/Alert [x] Routine visit [] Staff referral [] Actively dying [] Patient sleeping [x] Family support [] [] Out of room [] Palliative care [] [] Receiving care in room [] Pre-surgical visit [] Trauma [] Long length of stay [] ICU visit [] Other: Relational/Emotional Strength [] Patient feels connected with others/family/visitors/staff [] Distress [] Loneliness/isolation [] Abandonment Spirituality of Patient [] Person of Missy [] Attends Buddhist of their Missy [x] Believes in Prayer [] Reads Bible or Samaritan materials [] There are Spiritual issues to be addressed Federal Mediation Commissioner Interventions [x] Prayer [] Active listening [] Non-anxious presence [] Spiritual/emotional support [] Crisis/trauma care [] Spiritual counseling [] Bereavement support [] Provided bereavement packet [] Provided Bible/devotional materials [] Provided toy/stuffed animal, coloring book to patient or family member [] Provided Communion [] Anointing/[place] [] Salvation [x] Completed spiritual assessment [] Other: Impact on Illness or Injury [] Angry [] Fearful [] Anxious [] Often cries [] Exhaustion [] Unable to work [] Unable to attend latter day [] Unable to walk/stand [] Unable to read [] Unable to drive [] Unable to eat/drink [] Unable to sleep [] Unable to be with family [] Patient intubated [] Other: Summary Time spent with patient 15 min
[2019-11-05 11:22] LABS: Glucose Point of Care 204 mg/dL (70-110)
--- NOTE | 2019-11-05 11:36 | ECG_ITS ---
Measurements Intervals [place] Rate: 69 P: 55 IN: 216 QRS: 10 QRSD: 157 T: 204 QT: 439 QTc: 472 SINUS RHYTHM WITH FIRST DEGREE AV BLOCK LEFT BUNDLE BRANCH BLOCK [120+ ms QRS DURATION, 80+ ms Q/S IN V1/V2, 85+ ms R IN I/aVL/V5/V6] Compared to ECG 09/24/2019 23:29:53 No significant changes Electronically Signed On 11-05-2019 19:59:56 BILL RECAPITULATION CLERK by Ovidio Dotson M.D. [id number]
--- NOTE | 2019-11-05 11:39 | PC.NURSE ---
Dr mcnair contacted at this time for a heart rate drop and patient family concerns. Vital signs stable orders to obtain ekg given
--- NOTE | 2019-11-05 12:28 | PC.NURSE ---
ekg obtained and hospitalist updated
--- NOTE | 2019-11-05 13:17 | ECG_ITS ---
Measurements Intervals [place] Rate: 85 P: OK: 0 QRS: 20 QRSD: 157 T: 132 QT: 398 QTc: 475 Normal sinus rhythm with borderline first-degree AV block LEFT BUNDLE BRANCH BLOCK [120+ ms QRS DURATION, 80+ ms Q/S IN V1/V2, 85+ ms R IN / I/aVL/V5/V6] Compared to ECG 09/24/2019 23:29:53 Sinus rhythm no longer present First degree AV block no longer present Electronically Signed On 11-05-2019 19:57:10 CELLAR PACKER by Ovidio Dotson M.D. [id number]
--- NOTE | 2019-11-05 13:25 | PC.NURSE ---
patient in bathroom having valerie blood running down legs appears to be from rectum patient and family report a history of hemorrhoids and GI bleeds. Dr. Jay notified of events and a Stat CBC is ordered
--- NOTE | 2019-11-05 14:44 | PC.NURSE ---
patient discharged home with spouse at this time, discharge instructions given and explained to patient. IV removed cath intact patient assisted to wheel chair with all belongings and discharge instructions in hand accompanied to private vehicle by staff.
[2019-11-05 14:45] LABS: Basophils % 0.7 %; Eosinophils # 0.2 10^3/uL (0.0-0.8); Eosinophils % 3.4 %; Hematocrit 37.9 % (42.0-52.0); Hemoglobin 11.8 g/dL (11.7-16.6); Lymphocytes # 0.9 10^3/uL (0.8-4.8); Lymphocytes % 15.8 %; Mean Corpuscular HGB Conc 31.1 g/dL (30.0-36.0); Mean Corpuscular Hemoglobin 28.6 pg (28.0-34.0); Mean Platelet Volume 11.3 fL (7.4-10.4); Monocytes # 0.6 10^3/uL (0.2-0.9); Monocytes % 9.4 %; Neutrophils # 4.2 10^3/uL (1.8-7.7); Neutrophils % 70.5 %; Nucleated Red Blood Cells % 0 %; Platelet Count 192 10^3/cmm (130-400); Red Blood Count 4.12 10^6/uL (4.1-5.3); Red Cell Distribution Width 13.7 % (12.1-15.1); White Blood Count 5.9 10^3/uL (4.0-10.0)
--- NOTE | 2019-11-05 20:00 | P.DS_ITS ---
Discharge Providers Date of Admission: 11/04/19 18:26 Date of Discharge: November 05, 2019 Attending Provider at Admission: Prince Holley MD Attending Provider at Discharge: Prince Holley MD Primary Care Provider: Fito Baez DO Diagnoses at Discharge Discharge Diagnosis (1) CAD (coronary artery disease): Status: Acute (2) Chronic kidney disease (CKD) stage G3b/A2, moderately decreased glomerular filtration rate (GFR) between 30-44 mL/min/1.73 square meter and albuminuria creatinine ratio between 30-299 mg/g: Status: Acute (3) Type 2 diabetes mellitus: Status: Acute (4) Congestive heart failure: Status: Acute Qualifiers: Heart failure chronicity: acute on chronic Heart failure type: unspecified Qualified Code(s): I50.9 - Heart failure, unspecified (5) Severe mitral regurgitation: Status: Acute Reason for Visit Reason for Visit: Reason For Visit: cp Hospital Course Hospital Course: This is a 79-year-old male with a past medical history of type 2 diabetes mellitus, COPD, combined systolic and diastolic heart failure, severe mitral regurg, CAD, CKD baseline creatinine 2.5-3, who presented to the emergency room due to complaints of chest pain and concerns for fluid overload, and was advised by Dr. Vaughn to come to the ER due to weight gain up to 5 pounds. Patient was admitted for a mild congestive CHF exacerbation, received Lasix therapy, fluid restrictions, strict I's and O's, oxygen therapy, patient clinically did well, was discharged on his home dose of Lasix with close follow- up with cardiology as outpatient. For his chest pain, no repeat chest pain during admission, EKG was within normal limits, telemetry monitoring was within normal limits, troponins were at baseline with a negative delta, likely secondary to CHF. Of note patient had an episode of bloody stool during his inpatient admission, his hemoglobin has been stable between 11-12, he had a history of GI bleed in April status post colonoscopy in [place], patient Hemoccult was positive, he does have significant hemorrhoids, patient was advised to recheck hemoglobin in a week, to follow with primary care provider in 1 week. Physical Exam Const: COMMON NORMALS: no apparent distress and oriented x3 HENMT: COMMON NORMALS: normocephalic HEAD & SCALP: normocephalic Neck/C-Spine: COMMON NORMALS: no JVD Resp: COMMON NORMALS: normal respiratory effort, no retractions, no use of accessory muscles and clear to auscultation bilaterally AUSCULTATION: clear to auscultation bilaterally Cardio: COMMON NORMALS: no JVD, regular rate, regular rhythm, S1 normal heart sound and S2 normal heart sound RATE: regular rate RHYTHM: regular rhythm HEART SOUNDS: S1 normal and S2 normal GI: COMMON NORMALS: normal to inspection, nondistended, normoactive bowel sounds, soft to palpation, non-tender, no hepatosplenomegaly, no masses and no bruits PALPATION: Yes soft and Yes no hepatosplenomegaly OTHER: Rectal exam, has external hemorrhoids, Hemoccult positive Extremity: COMMON NORMALS: normal capillary refill, no clubbing, cyanosis or edema, no calf tenderness and no pedal edema Neuro: COMMON NORMALS: oriented x3 Psych: COMMON NORMALS: mental status grossly normal Discharge Data Data Completed and Pending: Completed Studies During Hospitalization Category Date Time Status XR chest 1V yon ble [id number] Stat Exams 11/04/19 15:57 Completed Labs from last 24 hours 11/05/19 11/05/19 11/05/19 14:30 10:56 06:35 WBC 5.9 RBC 4.12 Hgb 11.8 Hct 37.9 L MCV 92.0 MCH 28.6 MCHC 31.1 RDW 13.7 Plt Count 192 MPV 11.3 H Neut % (Auto) 70.5 Lymph % (Auto) 15.8 Bennett % (Auto) 9.4 Eos % (Auto) 3.4 Baso % (Auto) 0.7 Neut # (Auto) 4.2 Lymph # (Auto) 0.9 Bennett # (Auto) 0.6 Eos # (Auto) 0.2 Baso # (Auto) 0.0 Nucleated RBC % (a uto) 0 Nucleated RBCs # 0.0 Sodium Potassium Chloride Carbon Dioxide Anion Gap BUN Creatinine Glucose POC Glucose 204 237 Estimat Average Gl ucose Hemoglobin A1c Calcium Magnesium Total Bilirubin AST ALT Alkaline Phosphata se Troponin I 6 Hour Troponin I Hi Sens Del Total Protein Albumin Globulin Triglycerides Cholesterol LDL Cholesterol, C alc HDL Cholesterol LDL/HDL Ratio Cholesterol/HDL Ra catrachita 11/05/19 11/05/19 11/05/19 03:20 03:20 03:20 WBC 5.7 RBC 4.07 L Hgb 12.1 Hct 37.6 L MCV 92.4 MCH 29.7 MCHC 32.2 RDW 13.6 Plt Count 175 MPV 11.7 H Neut % (Auto) 70.3 Lymph % (Auto) 15.7 Bennett % (Auto) 8.9 Eos % (Auto) 4.4 Baso % (Auto) 0.5 Neut # (Auto) 4.0 Lymph # (Auto) 0.9 Bennett # (Auto) 0.5 Eos # (Auto) 0.3 Baso # (Auto) 0.0 Nucleated RBC % (a uto) 0 Nucleated RBCs # 0.0 Sodium 138 Potassium 4.2 Chloride 97 L Carbon Dioxide 24 Anion Gap 21.2 H BUN 69 H Creatinine 2.7 H Glucose 218 H POC Glucose Estimat Average Gl ucose Hemoglobin A1c Calcium 9.9 Magnesium 2.5 H Total Bilirubin 0.3 AST 17 ALT 13 Alkaline Phosphata se 77 Troponin I 6 Hour Troponin I Hi Sens Del Total Protein 7.4 Albumin 3.9 Globulin 3.5 Triglycerides 131 Cholesterol 183 LDL Cholesterol, C alc 107 HDL Cholesterol 50 L LDL/HDL Ratio 2.14 Cholesterol/HDL Ra catrachita 3.66 11/05/19 11/04/19 11/04/19 03:20 21:26 20:49 WBC RBC Hgb Hct MCV MCH MCHC RDW Plt Count MPV Neut % (Auto) Lymph % (Auto) Bennett % (Auto) Eos % (Auto) Baso % (Auto) Neut # (Auto) Lymph # (Auto) Bennett # (Auto) Eos # (Auto) Baso # (Auto) Nucleated RBC % (a uto) Nucleated RBCs # Sodium Potassium Chloride Carbon Dioxide Anion Gap BUN Creatinine Glucose POC Glucose 214 Estimat Average Gl ucose 194 Hemoglobin A1c 8.4 H Calcium Magnesium Total Bilirubin AST ALT Alkaline Phosphata se Troponin I 6 Hour 68.98 H Troponin I Hi Sens Del -12.02 L Total Protein Albumin Globulin Triglycerides Cholesterol LDL Cholesterol, C alc HDL Cholesterol LDL/HDL Ratio Cholesterol/HDL Ra catrachita Vitals: Last Vital Signs Temp 96.6 F L 11/05/19 14:27 Pulse 73 11/05/19 14:27 Resp 16 11/05/19 14:27 BP 119/55 11/05/19 14:27 Pulse Ox 95 11/05/19 14:27 Discharge Plan Discharge Patient Disposition: Home, Self-Care Condition: Stable Prescriptions: Continued isosorbide dinitrate 20 mg tablet 20 mg PO BID Qty: 60 RF: 11 lorazepam 2 mg tablet 2 mg PO BEDTIME PRN (Reason: sleep) Qty: 30 RF: 0 pantoprazole 40 mg tablet,delayed release (DR/EC) 40 mg PO BID Qty: 180 RF: 3 potassium chloride 20 mEq tablet,ER particles/crystals 20 meq PO DAILY Qty: 90 RF: 3 metoprolol tartrate 25 mg tablet 25 mg PO BID Qty: 180 RF: 3 isosorbide mononitrate 60 mg tablet extended release 24 hr 60 mg PO DAILY Qty: 90 RF: 3 Novolog Flexpen U-100 Insulin 100 unit/mL (3 mL) insulin pen See Rx Instructions .ROUTE .COMPLEX RF: 0 Levemir FlexTouch U-100 Insuln 100 unit/mL (3 mL) insulin pen 70 unit SUBCUT DAILY RF: 0 hydralazine 10 mg tablet 10 mg PO TID RF: 0 ferrous sulfate 325 mg (65 mg iron) Tablet 325 mg PO DAILY RF: 0 nitroglycerin 0.4 mg tablet, sublingual 0.4 mg sublingual PRN PRN (Reason: Chest Pain) RF: 0 aspirin 81 mg Tablet,Delayed Release (Dr/Ec) 81 mg PO DAILY RF: 0 simvastatin 20 mg tablet 20 mg PO BEDTIME RF: 0 furosemide 40 mg tablet See Rx Instructions PO BID RF: 0 Discharge Orders: Discharge Order (Routine); Ordered 11/05/19 Ordered By: Pawel Jay Other Ambulatory Orders: Complete Blood Count w/Auto (Routine) Timeframe: 1 Day Location: Determined by Patient Ordered By: Pawel Jay Referrals: Kirt Vaughn MD [Physician] - 1 week (You have a cardiology followup at [facility] with LUPE Perez on November 11 at 1:30pm . Any questions or appointment changes, please call them at [phone]) Fito Baez DO [Primary Care Provider] - 1 week ([facility] will be calling to set up a hospital followup to be seen in apporx. [address] Baez. If you don't hear from them by tomorrow afternoon, please give them a call at [phone]) Discharge Diet: Cardiac Discharge Activity: Resume usual activity Patient Instructions: Heart Failure (DC), CHF Stoplight Activity Restrictions/Additional Instructions: -Please do daily weights, if weight increases by more than 5 pounds call primary care, fluid restrictions to less than 1500 mL daily, if you have worsening bilateral lower edema please call primary care -Pleaseuse Lasix as prescribed 80 mg in the morning, 60 mg in the evening or if severe swelling can increase to 80 mg in the evening -For your slow GI bleed, take Protonix 40 twice daily, iron 325 mg once daily, monitor hemoglobin by rechecking tomorrow, if you have bloody or black stools please call primary care, follow-up with primary care in 1 week Discharge Date/Time: 11/05/19 14:43 Discharge Attestations Time Spent in Discharge Care*: less than 30 min Quality Metrics Clinical Quality Measures During this hospital stay, did patient experience: None Coding Level of Care Code Acute Marine Engineering Technicians for Parishg Fwd Diagnoses CAD (coronary artery disease) I25.10 Chronic kidney disease (CKD) stage G3b/A2, moderately decreased glomerular filtration rate (GFR) between 30-44 mL/min/1.73 square meter and albuminuria creatinine ratio between 30-299 mg/g N18.3 Type 2 diabetes mellitus E11.9 Congestive heart failure I50.9 Heart failure chronicity: acute on chronic Heart failure type: unspecified Severe mitral regurgitation I34.0
== END 2019-11-05 14:43 | disposition home or self-care (01) ==
LOC: ER 15:16 → CSU 22:10
PROVIDERS: Family Medicine; Admitting Provider Student in an Organized Health Care Education/Training Program; Emergency Provider Family Medicine; Family Provider Family Medicine; PCP Family Medicine; Visit Provider Student in an Organized Health Care Education/Training Program
DX: I25.10 Atherosclerotic heart disease of native coronary artery without angina pectoris (principal); E11.22 Type 2 diabetes mellitus with diabetic chronic kidney disease; N18.3 Chronic kidney disease, stage 3 (moderate); I34.0 Nonrheumatic mitral (valve) insufficiency; Z79.4 Long term (current) use of insulin; Z99.81 Dependence on supplemental oxygen; I50.40 Unspecified combined systolic (congestive) and diastolic (congestive) heart failure; Z95.5 Presence of coronary angioplasty implant and graft; Z82.49 Family history of ischemic heart disease and other diseases of the circulatory system
CPT/HCPCS: 12345; 36415; 36416; 71045; 80053; 80061; 81003; 82962; 83036; 83735; 83880; 84443; 84484; 85025; 85378; 93005; 96372; 96374; 96375; 99283; 99285; G0378; J1815; J1940

== ENCOUNTER → 2019-11-14 10:46 | Outpatient (BNVA) | payer MEDICARE, OTHER, SELFPAY | PROVIDERS: Family Provider Family Medicine; PCP Family Medicine; Visit Provider Family Medicine | DX: I25.10 Atherosclerotic heart disease of native coronary artery without angina pectoris (principal); I50.9 Heart failure, unspecified; N18.3 Chronic kidney disease, stage 3 (moderate); E11.59 Type 2 diabetes mellitus with other circulatory complications; I25.118 Atherosclerotic heart disease of native coronary artery with other forms of angina pectoris; I34.0 Nonrheumatic mitral (valve) insufficiency | CPT/HCPCS: 80053; 85025 ==

== ENCOUNTER → 2020-01-22 09:10 | Outpatient (BNVA) | payer MEDICARE, OTHER, SELFPAY | PROVIDERS: Family Provider Family Medicine; PCP Family Medicine; Visit Provider Urology | DX: R97.20 Elevated prostate specific antigen [PSA] (principal) | CPT/HCPCS: 81001; 84153 ==

== ENCOUNTER → 2020-02-10 11:51 | Outpatient (BNVA) | payer MEDICARE, OTHER, SELFPAY | PROVIDERS: Family Provider Family Medicine; PCP Family Medicine; Visit Provider Family Medicine | DX: D64.9 Anemia, unspecified (principal); E11.9 Type 2 diabetes mellitus without complications; N18.3 Chronic kidney disease, stage 3 (moderate); F41.9 Anxiety disorder, unspecified; I25.10 Atherosclerotic heart disease of native coronary artery without angina pectoris | CPT/HCPCS: 83036 ==

== ENCOUNTER 2020-03-11 14:05 | Outpatient (CLI) | payer MEDICARE, OTHER, SELFPAY | END 2020-03-11 14:06 | disposition home or self-care (01) | LOC: LAB 14:10 | PROVIDERS: Family Provider Family Medicine; PCP Family Medicine; Visit Provider Urology | DX: R97.20 Elevated prostate specific antigen [PSA] (principal) | CPT/HCPCS: 84153 ==

== ENCOUNTER → 2020-03-20 10:19 | Outpatient (BNVA) | payer MEDICARE, OTHER, SELFPAY | PROVIDERS: Family Provider Family Medicine; PCP Family Medicine; Visit Provider Urology | DX: R97.20 Elevated prostate specific antigen [PSA] (principal); N18.3 Chronic kidney disease, stage 3 (moderate) | CPT/HCPCS: 81001 ==

== ENCOUNTER → 2020-05-28 10:19 | Outpatient (BNVA) | payer MEDICARE, OTHER, SELFPAY | PROVIDERS: Family Provider Family Medicine; PCP Family Medicine; Visit Provider Family Medicine | DX: E11.9 Type 2 diabetes mellitus without complications (principal) | CPT/HCPCS: 83036 ==

== ENCOUNTER → 2020-06-29 13:30 | Outpatient (BNVA) | payer MEDICARE, OTHER, SELFPAY | PROVIDERS: Family Provider Family Medicine; PCP Family Medicine; Visit Provider Family Medicine | DX: M79.673 Pain in unspecified foot (principal) | CPT/HCPCS: 36415; 84550 ==

== ENCOUNTER 2020-07-04 10:49 | Emergency (ER) | payer MEDICARE, OTHER, SELFPAY ==
--- NOTE | 2020-07-04 10:56 | XRR_ITS ---
PROCEDURE INFORMATION: Exam: XR Chest, 1 View Exam date and time: 07/04/2020 10:58 AM Age: 80 years old Clinical indication: Chest pain; Additional info: Cp TECHNIQUE: Imaging protocol: XR of the chest Views: 1 view. COMPARISON: CR XR chest 1V portable [id number] 11/04/2019 4:10 PM FINDINGS: Lungs: Benign calcified granuloma left base. No acute pulmonary infiltrates are seen. Pleural space: Unremarkable. No pleural effusion. No pneumothorax. Heart/Mediastinum: Cardiomegaly. Atherosclerotic aorta. Bones/joints: Unremarkable. XR/XR chest 1V portable [id number] IMPRESSION: 1. Stable cardiomegaly. 2. No acute pulmonary infiltrates.
--- NOTE | 2020-07-04 10:57 | ECG_ITS ---
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 Measurements Intervals [place] Rate: 85 P: 81 MT: 250 QRS: 97 QRSD: 157 T: -88 QT: 419 QTc: 499 Interpretive Statements SINUS RHYTHM WITH FIRST DEGREE AV BLOCK BORDERLINE RIGHT AXIS DEVIATION [QRS AXIS > 90] INTRAVENTRICULAR CONDUCTION DELAY [130+ ms QRS DURATION] Compared to ECG 11/05/2019 11:48:49 Intraventricular conduction delay now present Left bundle-branch block no longer present Electronically Signed On 07-04-2020 22:04:34 CDT by Terra Lantigua M.D. https://[employer] [facility].[email or web address]/store/[id number]
[2020-07-04 11:00] VITALS: BP 145/82; PULSE 79; RESP 18; TEMP 37.1; O2SAT 98; BMI 31.1
--- NOTE | 2020-07-04 11:25 | ED_ITS ---
HPI - Chest Pain General: Chief Complaint: Chest Pain Stated Complaint: Chest Pain Time Seen by Provider: 07/04/20 11:00 History of Present Illness: HPI narrative: 80-year-old male presents emergency room with complaints of fluid on his chest he has had this for the last couple of days he was seen a few days ago and given treatment for gout is not reporting any foot pain at all now he took his first medicine yesterday. He does report some chest tightness all the way across the chest with no radiation to the neck or the back. He reports having significant heart murmur which has caused congestive heart failure in the past.Kidney disease.He also has a history of atrial ablation and chronic MD complaint: chest heaviness Pertinent past history: coronary artery disease Onset (ago): hour(s) Timing of current episode: episodic Prior episodes: Yes Onset: during rest Pain location: left chest and right chest Pain radiation: none Severity: mild Quality: tightness Relieving factors: rest Exacerbating factors: exertion Associated symptoms: Reports dyspnea; Deny abdominal pain, diaphoresis, fever(s), leg edema, nausea, palpitations, sense of impending doom, syncope or vomiting Treatment prior to arrival: none Review of Systems Const: Denies: fever(s) or diaphoresis ENMT: Denies: throat pain, ear or mastoid pain, nasal discharge or nasal congestion Card: Denies: palpitations or syncope Resp: Reports: dyspnea GI: Denies: abdominal pain, nausea or vomiting : Denies: flank pain, dysuria, urinary frequency or urinary urgency Skin/Breast: Denies: rash or pruritus PFS ED PFSH: Medical History Carotid artery disease Chronic kidney disease (CKD) stage G3b/A2, moderately decreased glomerular filtration rate (GFR) between 30-44 mL/min/1.73 square meter and albuminuria creatinine ratio between 30-299 mg/g Congestive heart failure Combined systolic and diastolic. LVEF 45-50%, grade 2 diastolic dysfunction Elevated PSA Enrolled in chronic care management Ischemic cardiomyopathy Left bundle branch block Secondary pulmonary hypertension Severe mitral regurgitation Type 2 diabetes mellitus Surgical History History of coronary artery stent placement Family History Other CAD (coronary artery disease) Social History Smoking and tobacco status: former smoker Quit status (tobacco): has quit using tobacco Former quit date comment: last night Alcohol intake: never Household members: spouse Housing: House Marital status: History of recent travel: No Physical Exam Const: COMMON NORMALS: no acute distress GENERAL APPEARANCE: cooperative and comfortable ORIENTATION/CONSCIOUSNESS: Yes awake, Yes oriented to person, Yes oriented to place and Yes oriented to time HENMT: COMMON NORMALS: normocephalic, atraumatic and hearing grossly normal bilaterally HEAD & SCALP: normocephalic and atraumatic Neck/C-Spine: COMMON NORMALS: full ROM, no lymphadenopathy and supple OTHER: JVD to the level of the TMJ at 45 degrees. Lymph: LYMPHATIC: no lymphadenopathy noted and no lymphedema noted Resp: COMMON NORMALS: normal respiratory effort, No retractions, No use of accessory muscles and clear to auscultation bilaterally AUSCULTATION: clear to auscultation bilaterally Cardio: COMMON NORMALS: regular rate RATE: regular rate HEART SOUNDS: Murmur heart sound present diastolic Location: axilla Radiation: to the left ax illa Intensity: / Characteristics: blowing and systolic Location: right sternal border Intensity: III/ Timing: late GI: COMMON NORMALS: Soft to palpation and No hepatosplenomegaly present AUSCULTATION: Yes normoactive bowel sounds PALPATION: Yes Soft to palpation, No Tenderness to palpation present (GI), No Guarding due to palpation present (GI) and Yes No hepatosplenomegaly present Extremity: COMMON NORMALS: normal to inspection, capillary refill normal, no clubbing, cyanosis or edema, no calf tenderness and no pedal edema Neuro: SENSORIUM/ORIENTATION: Yes oriented to person, Yes oriented to place and Yes oriented to time Skin: COMMON NORMALS: no rashes or lesions noted GENERAL SKIN EXAM: no rashes or lesions noted Course Vital Signs: Vital signs: Vital Signs Temperature 98.7 F 07/04/20 11:00 Pulse Rate 74 07/04/20 15:21 Respiratory Rate 18 07/04/20 15:21 Blood Pressure 137/55 07/04/20 15:21 Pulse Oximetry 97 10/24/20 15:21 MDM - Chest Pain MDM Narrative: Medical decision making narrative: Patient is feeling improved after Lasix. He feels much better he said good urine output. We will go and discharge him home increase his Lasix to 120 twice daily for 3 days and follow- up with primary care doctor return if worsens Lab Data: Labs: Lab Results 07/04/20 07/04/20 07/04/20 Range/Units 11:25 11:25 11:25 WBC 6.3 (4.0-10.0) 10^3/ uL RBC 4.27 (4.1-5.3) 10^6/u L Hgb 12.7 (11.7-16.6) g/dL Hct 40.4 L (42.0-52.0) % MCV 94.6 H (80-94) fL MCH 29.7 (28.0-34.0) pg MCHC 31.4 (30.0-36.0) g/dL RDW 14.0 (12.1-15.1) % Plt Count 202 (130-400) 10^3/c mm MPV 11.2 H (7.4-10.4) fL Neut % (Auto) 71.7 % Lymph % (Auto) 17.0 % [place] % (Auto) 8.0 % Eos % (Auto) 2.5 % Baso % (Auto) 0.6 % Neut # (Auto) 4.50 (1.8-7.7) 10^3/u L Lymph # (Auto) 1.1 (0.8-4.8) 10^3/u L [place] # (Auto) 0.5 (0.2-0.9) 10^3/u L Eos # (Auto) 0.2 (0.0-0.8) 10^3/u L Baso # (Auto) 0.0 (0.0-0.1) 10^3/u L Nucleated RBC % (a uto) 0 % Nucleated RBCs # 0.0 /100WBC Sodium 142 (136-145) mmol/L Potassium 4.7 (3.5-5.1) mmol/L Chloride 103 (98-107) mmol/L Carbon Dioxide 26 (22-29) mmol/L Anion Gap 17.7 (5-19) BUN 69 H (8-23) mg/dL Creatinine 3.0 H (0.7-1.2) mg/dL GFR Calculation Not Reportable Glucose 157 H (65-115) mg/dL Calculated Osmolal ity 317 H (285-295) mOsm/k g Calcium 9.3 (8.5-10.5) mg/dL Magnesium 2.3 (1.7-2.3) mg/dL Total Bilirubin 0.3 (0.15-1.2) mg/dL AST 15 (0-40) U/L ALT 13 (0-41) U/L Alkaline Phosphata se 99 (40-130) IU/L Troponin T Baselin e 69 H (0-15) ng/L Troponin T 120 Min [place] (0-15) ng/L Delta Troponin T (0-10) ABS# NT-Pro-B Natriuret Pep 18254 H (0-450) pg/mL Total Protein 7.1 (6.6-8.7) g/dL Albumin 4.5 (3.5-5.2) g/dL Globulin 2.6 (1.3-4.6) g/dL 07/04/20 Range/Units 13:39 WBC (4.0-10.0) 10^3/ uL RBC (4.1-5.3) 10^6/u L Hgb (11.7-16.6) g/dL Hct (42.0-52.0) % MCV (80-94) fL MCH (28.0-34.0) pg MCHC (30.0-36.0) g/dL RDW (12.1-15.1) % Plt Count (130-400) 10^3/c mm MPV (7.4-10.4) fL Neut % (Auto) % Lymph % (Auto) % [place] % (Auto) % Eos % (Auto) % Baso % (Auto) % Neut # (Auto) (1.8-7.7) 10^3/u L Lymph # (Auto) (0.8-4.8) 10^3/u L [place] # (Auto) (0.2-0.9) 10^3/u L Eos # (Auto) (0.0-0.8) 10^3/u L Baso # (Auto) (0.0-0.1) 10^3/u L Nucleated RBC % (a uto) % Nucleated RBCs # /100WBC Sodium (136-145) mmol/L Potassium (3.5-5.1) mmol/L Chloride (98-107) mmol/L Carbon Dioxide (22-29) mmol/L Anion Gap (5-19) BUN (8-23) mg/dL Creatinine (0.7-1.2) mg/dL GFR Calculation Glucose (65-115) mg/dL Calculated Osmolal ity (285-295) mOsm/k g Calcium (8.5-10.5) mg/dL Magnesium (1.7-2.3) mg/dL Total Bilirubin (0.15-1.2) mg/dL AST (0-40) U/L ALT (0-41) U/L Alkaline Phosphata se (40-130) IU/L Troponin T Baselin e (0-15) ng/L Troponin T 120 Min [place] 68.32 H (0-15) ng/L Delta Troponin T -0.68 L (0-10) ABS# NT-Pro-B Natriuret Pep (0-450) pg/mL Total Protein (6.6-8.7) g/dL Albumin (3.5-5.2) g/dL Globulin (1.3-4.6) g/dL Discharge Plan Discharge Patient Disposition: Home Clinical Impression: Chronic kidney disease (CKD) stage G3b/A2, moderately decreased glomerular filtration rate (GFR) between 30-44 mL/min/1.73 square meter and albuminuria creatinine ratio between 30-299 mg/g, CAD (coronary artery disease) Congestive heart failure Qualifiers: Heart failure type: unspecified Heart failure chronicity: acute on chronic Qualified Code(s): I50.9 - Heart failure, unspecified Type 2 diabetes mellitus Qualifiers: Diabetes mellitus oil heaterman insulin use: without retirement use Diabetes mellitus complication status: with hyperglycemia Qualified Code(s): E11.65 - Type 2 diabetes mellitus with hyperglycemia Condition: Stable Prescriptions: Changed furosemide 40 mg tablet 120 mg PO BID Qty: 120 RF: 11 No Action lorazepam 2 mg tablet 2 mg PO BEDTIME PRN (Reason: sleep) Qty: 30 RF: 0 Levemir FlexTouch U-100 Insuln 100 unit/mL (3 mL) insulin pen 80 unit SUBCUT DAILY Qty: 30 RF: 1 indomethacin 25 mg capsule 25 mg PO TID Qty: 30 RF: 0 ferrous sulfate 325 mg (65 mg iron) tablet 325 mg PO DAILY Qty: 30 RF: 11 aspirin 81 mg tablet,delayed release (DR/EC) 81 mg PO DAILY Qty: 100 RF: 5 simvastatin 20 mg tablet 20 mg PO BEDTIME Qty: 30 RF: 11 nitroglycerin 0.4 mg tablet, sublingual 0.4 mg sublingual PRN PRN (Reason: Chest Pain) Qty: 30 RF: 11 cholecalciferol (vitamin D3) 10 mcg (400 unit) capsule 400 unit PO DAILY RF: 0 pantoprazole 40 mg tablet,delayed release (DR/EC) 40 mg PO BID Qty: 180 RF: 3 metoprolol tartrate 25 mg tablet 25 mg PO BID Qty: 180 RF: 3 isosorbide mononitrate 60 mg tablet extended release 24 hr 60 mg PO DAILY Qty: 90 RF: 3 potassium chloride 20 mEq tablet,ER particles/crystals 20 meq PO DAILY Qty: 90 RF: 3 hydralazine 10 mg tablet 10 mg PO TID Qty: 270 RF: 3 isosorbide dinitrate 20 mg tablet 20 mg PO BID Qty: 60 RF: 0 allopurinol 100 mg tablet 100 mg PO DAILY Qty: 30 RF: 0 insulin aspart U-100 [Novolog Flexpen U-100 Insulin] 100 unit/mL (3 mL) insulin pen See Rx Instructions .ROUTE .COMPLEX RF: 0 Flonase Allergy Relief 50 mcg/actuation [place],Suspension 1 - 2 spray INTRANASAL PRN RF: 0 zinc 1 tab PO DAILY RF: 0 Discharge Orders: Discharge Order (Routine); Ordered 07/04/20 Ordered By: Pedro Rock Referrals: Fito Baez DO [Primary Care Provider] - Discharge Diet: Usual diet Discharge Activity: Limit activity as instructed Activity Restrictions/Additional Instructions: Follow-up with your doctor in 2 to 3 days Discharge Date/Time: 07/04/20 15:21 Coding Level of Care Code ED Cold Header for Chg Fwd Exam Comprehensive
[2020-07-04 11:47] LABS: Basophils % 0.6 %; Eosinophils # 0.2 10^3/uL (0.0-0.8); Eosinophils % 2.5 %; Hematocrit 40.4 % (42.0-52.0); Hemoglobin 12.7 g/dL (11.7-16.6); Lymphocytes # 1.1 10^3/uL (0.8-4.8); Mean Corpuscular HGB Conc 31.4 g/dL (30.0-36.0); Mean Corpuscular Hemoglobin 29.7 pg (28.0-34.0); Mean Corpuscular Volume 94.6 fL (80-94); Mean Platelet Volume 11.2 fL (7.4-10.4); Monocytes # 0.5 10^3/uL (0.2-0.9); Neutrophils % 71.7 %; Nucleated Red Blood Cells % 0 %; Platelet Count 202 10^3/cmm (130-400); Red Blood Count 4.27 10^6/uL (4.1-5.3); White Blood Count 6.3 10^3/uL (4.0-10.0)
[2020-07-04 12:10] LABS: Troponin(5th) Baseline 69 ng/L (0-15)
[2020-07-04 12:19] LABS: Alanine Aminotransferase 13 U/L (0-41); Albumin Level 4.5 g/dL (3.5-5.2); Alkaline Phosphatase 99 IU/L (40-130); Anion Gap 17.7 (5-19); Aspartate Amino Transferase 15 U/L (0-40); Blood Urea Nitrogen 69 mg/dL (8-23); Calcium 9.3 mg/dL (8.5-10.5); Carbon Dioxide 26 mmol/L (22-29); Chloride 103 mmol/L (98-107); Globulin 2.6 g/dL (1.3-4.6); Glucose 157 mg/dL (65-115); Magnesium 2.3 mg/dL (1.7-2.3); NT Pro B Type Natriuretic Pept 16164 pg/mL (0-450); Osmolality Calculated 317 mOsm/kg (285-295); Potassium 4.7 mmol/L (3.5-5.1); Sodium 142 mmol/L (136-145); Total Bilirubin 0.3 mg/dL (0.15-1.2); Total Protein 7.1 g/dL (6.6-8.7)
--- NOTE | 2020-07-04 12:57 | ECG_ITS ---
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 Measurements Intervals [place] Rate: 78 P: 82 DE: 230 QRS: 86 QRSD: 162 T: -90 QT: 428 QTc: 489 Interpretive Statements SINUS RHYTHM WITH FIRST DEGREE AV BLOCK LEFT BUNDLE BRANCH BLOCK [120+ ms QRS DURATION, 80+ ms Q/S IN V1/V2, 85+ ms R IN I/aVL/V5/V6] Compared to ECG 07/04/2020 11:00:16 Left bundle-branch block now present Intraventricular conduction delay no longer present Electronically Signed On 07-04-2020 22:13:53 CDT by Terra Lantigua M.D. [email or web address] [email or web address].[id number]
[2020-07-04] MEDS: FUROsemide 10 mg/mL SDV 4mL 40 MG IVP (13:35)
[2020-07-04 14:15] LABS: Troponin 5 2HR 68.32 ng/L (0-15)
[2020-07-04 14:21] LABS: Troponin 5 2HR Delta -0.68 ABS# (0-10)
[2020-07-04 15:21] VITALS: BP 137/55; PULSE 74; RESP 18; O2SAT 97
== END 2020-07-04 15:21 | disposition home or self-care (01) ==
PROVIDERS: Physician Assistant; Emergency Provider Family Medicine; PCP Family Medicine
DX: I12.9 Hypertensive chronic kidney disease with stage 1 through stage 4 chronic kidney disease, or unspecified chronic kidney disease (principal); E11.22 Type 2 diabetes mellitus with diabetic chronic kidney disease; E11.65 Type 2 diabetes mellitus with hyperglycemia; N18.32 Chronic kidney disease, stage 3b; I50.9 Heart failure, unspecified; Z79.4 Long term (current) use of insulin; I25.10 Atherosclerotic heart disease of native coronary artery without angina pectoris; Z79.82 Long term (current) use of aspirin; Z87.891 Personal history of nicotine dependence
CPT/HCPCS: 12345; 71045; 80053; 83735; 83880; 84484; 85025; 93005; 96374; 96375; 99282; J1940

== ENCOUNTER → 2020-09-17 12:48 | Outpatient (BNVA) | payer MEDICARE, OTHER, SELFPAY | PROVIDERS: PCP Family Medicine; Visit Provider Nurse Practitioner Family | DX: R97.20 Elevated prostate specific antigen [PSA] (principal) | CPT/HCPCS: 84153 ==

== ENCOUNTER → 2020-09-22 09:56 | Outpatient (BNVA) | payer MEDICARE, SELFPAY | PROVIDERS: PCP Family Medicine; Visit Provider Family Medicine | DX: E11.9 Type 2 diabetes mellitus without complications (principal); F41.9 Anxiety disorder, unspecified; I65.29 Occlusion and stenosis of unspecified carotid artery; R97.20 Elevated prostate specific antigen [PSA] | CPT/HCPCS: 83036 ==

== ENCOUNTER → 2020-10-23 12:55 | Outpatient (BNVA) | payer MEDICARE, SELFPAY | PROVIDERS: PCP Family Medicine; Visit Provider Nurse Practitioner Family | DX: I10 Essential (primary) hypertension (principal); D50.9 Iron deficiency anemia, unspecified; E11.65 Type 2 diabetes mellitus with hyperglycemia | CPT/HCPCS: 36415; 80053; 80061; 82728; 83036; 83550; 84439; 84443 ==